=== PATIENT | female | born 1940 | race Caucasian/White ===

== ENCOUNTER → 2017-01-24 | Outpatient (CLI) | payer MEDICARE ==
--- NOTE | 2017-01-24 16:09 | RAD ---
Indication hypothyroidism. Grayscale imaging was performed targeted to the thyroid. Note is made of a similar exam one year ago. The right lobe of the thyroid measures 3.8 x 2 x 2 cm. Within the right lobe there is a hypoechoic well-defined 5-6 mm mass. The isthmus appears unremarkable. The left lobe of the thyroid appears normal and measures approximately 4.1 x 1.5 x 1.8 cm. IMPRESSION: Subcentimeter mass right lobe of the thyroid otherwise unremarkable exam
== END | disposition home or self-care (01) ==
LOC: US 14:41
PROVIDERS: ATTEND Physician Assistant Medical
DX: E03.9 Hypothyroidism, unspecified (principal)
CPT/HCPCS: 76536

== ENCOUNTER → 2017-01-31 | Outpatient (CLI) | payer MEDICARE ==
--- NOTE | 2017-01-31 08:52 | RAD ---
Exam: PA and lateral chest radiograph History: Chest congestion with nonproductive cough for 10 days. Comparison: 07/08/2015. Findings: Cardiac silhouette appears within normal limits for size. Postoperative changes are seen involving the right hemithorax. There is evidence of volume loss involving the right lung shelton. Better seen on the frontal view, there is apparent development of irregular nodule adjacent to left cardiac silhouette measuring about 2.5 cm. This might correspond to the lingula on lateral view. Impression: 1. Possible irregular left lung nodule. Recommend further evaluation with CT. 2. Postoperative changes of right chest.
== END | disposition home or self-care (01) ==
LOC: DXRADRC 07:50
PROVIDERS: ATTEND Physician Assistant Medical
DX: R05 Cough (principal); R09.89 Other specified symptoms and signs involving the circulatory and respiratory systems; Z98.3 Post therapeutic collapse of lung status
CPT/HCPCS: 71020

== ENCOUNTER → 2017-02-07 | Outpatient (CLI) | payer MEDICARE ==
--- NOTE | 2017-02-07 16:03 | RAD ---
Indication lung cancer. History of smoking Noncontrast images through the chest were obtained. No prior CT imaging of the chest is available. Imaging through the upper abdomen shows no definite acute or significant finding. A few small periaortic lymph nodes are noted. These are probably incidental. There are several calcified right and a few left hilar lymph nodes. Significant mediastinal adenopathy is not seen. There are scattered areas of pleural-parenchymal scarring. There is reticulonodular prominence superiorly in the right upper lobe. This could reflect scar. Local inflammation is not excluded. A dominant soft tissue mass in either lung is not seen. There is some nonsolid parenchymal opacities in the left lower lobe, superiorly. This may reflect scar. Inflammation is not excluded. Neoplastic disease is felt very unlikely but follow-up imaging, assessing stability, should be considered. IMPRESSION: No dominant soft tissue mass seen in either lung. Reticulonodular prominence in the right upper lobe may represent scar. Inflammation is not entirely excluded. Nonsolid parenchymal opacities in the left lower lobe. Follow-up imaging to determine stability advised along the lines of the Fleischner criteria. Pleural scarring or peripheral nodule in the left upper lobe measuring approximately 3 mm. Nodules detected incidentally at non-screening CT Nodule size (mm) less than or equal to 4 Low Risk patients- no follow-up needed High Risk patients- follow-up at 12 months and if no change, no further imaging needed. Nodule size > 4-6 mm Low risk patients- follow- up at 12 months and if no change, no further imaging needed High risk patients- initial follow-up CT at 6-12 months and then at 18-24 months if no change. Nodule Size > 6-8 mm Low risk patients- initial follow-up CT at 6-12 months and then at 18-24 months if no change. High risk patients- initial follow- up CT at 3-6 months and then at 9-12 months if no change, Nodule Size >8 mm Either low or high risk patients: Follow-up CT at around 3, 9 and 24 [address], PET, and/or biopsy Note: newly detected indeterminate nodule in person 35 years of age or older. Low risk patients- minimal or absent history of smoking and/or other known risk factors. High risk patients- history of smoking or of other known risk factors. PQRS Compliance Statement: One or more of the following individualized dose reduction techniques were utilized for this examination: 1. Automated exposure control 2. Adjustment of the mA and/or kV according to patient size 3. Use of iterative reconstruction technique
== END | disposition home or self-care (01) ==
LOC: CT 15:05
PROVIDERS: ATTEND Physician Assistant Medical
DX: J98.4 Other disorders of lung (principal); R91.8 Other nonspecific abnormal finding of lung field; C85.90 Non-Hodgkin lymphoma, unspecified, unspecified site; Z87.891 Personal history of nicotine dependence
CPT/HCPCS: 71250

== ENCOUNTER → 2017-07-26 | Outpatient (CLI) | payer MEDICARE ==
--- NOTE | 2017-07-26 15:36 | RAD ---
Indication: Claudication. Technique: Grayscale, color-flow, and spectral waveform analysis of both lower extremity arterial systems was performed. No comparison is available. Findings: Waveforms are triphasic and biphasic proximally although the runoff bilaterally is monophasic. There is mild plaquing throughout both lower extremity arterial systems. There is an elevated velocity in the right superficial femoral artery, mid segment, 224 cm/s. Otherwise, no additional elevated velocity is apparent. Right common femoral artery peak systolic velocity is 147 cm/s and the left 129 cm/s. Right profundus peak systolic velocity is 78 cm/s and the left 71 cm/s. Right superficial femoral artery peak systolic velocities ranged from 153-224 cm/s and the left 132-153 cm/s. Right popliteal artery peak systolic velocity is 62 cm/s and the left 76 cm/s. Impression: 1. Moderately elevated velocity in the right superficial femoral artery, midsegment, suggests a moderate stenosis. 2. Mild scattered atheromatous plaquing throughout both lower extremities. 3. Monophasic runoff bilaterally can be a finding of a more proximal stenosis.
== END | disposition home or self-care (01) ==
LOC: US 13:10
PROVIDERS: ATTEND Physician Assistant Medical
DX: I73.9 Peripheral vascular disease, unspecified (principal)
CPT/HCPCS: 93925

== ENCOUNTER → 2017-10-28 | Outpatient (CLI) | payer MEDICARE ==
[~2017-10-28] MED LIST: BUPIVACAINE MPF 0.25% 10 ML VIAL. ONE; LIDOCAINE 1% PF 30 ML VIAL. ONE; methylPREDNISolone ACETATE 40 MG/ML VIAL. ONE
== END | disposition home or self-care (01) ==
LOC: SURG 13:56
PROVIDERS: ATTEND Anesthesiology Pain Medicine
DX: M47.816 Spondylosis without myelopathy or radiculopathy, lumbar region (principal); I10 Essential (primary) hypertension; Z98.890 Other specified postprocedural states
CPT/HCPCS: 64493; 64494; 99204; J1030; J2001; J3490

== ENCOUNTER → 2017-11-30 | Outpatient (CLI) | payer MEDICARE | END | disposition home or self-care (01) | LOC: SURG 10:30 | PROVIDERS: ATTEND Anesthesiology Pain Medicine | DX: M47.816 Spondylosis without myelopathy or radiculopathy, lumbar region (principal); M54.5 Low back pain; I10 Essential (primary) hypertension; K21.9 Gastro-esophageal reflux disease without esophagitis; J44.9 Chronic obstructive pulmonary disease, unspecified; M19.90 Unspecified osteoarthritis, unspecified site; Z79.899 Other long term (current) drug therapy; Z98.890 Other specified postprocedural states; Z79.82 Long term (current) use of aspirin | CPT/HCPCS: 64493; 64494; 99213; J1030; J2001; J3490 ==

== ENCOUNTER → 2017-12-15 | Outpatient (CLI) | payer MEDICARE | END | disposition home or self-care (01) | LOC: SURG 12:20 | PROVIDERS: ATTEND Anesthesiology Pain Medicine | DX: M47.816 Spondylosis without myelopathy or radiculopathy, lumbar region (principal); M19.90 Unspecified osteoarthritis, unspecified site; J44.9 Chronic obstructive pulmonary disease, unspecified | CPT/HCPCS: 99213 ==

== ENCOUNTER → 2018-01-04 | Outpatient (CLI) | payer MEDICARE ==
[~2018-01-04] MED LIST changes: +ASPI81TA50 PO; +CALC-157 PO; +DEXAMETHASONE SOD PHOS 4 MG/ML VIAL ONE; +DOCU-109 PO; +ESOM40CA PO; +IBUP100T7 PO; +IV RINGERS SOLUTION,LACTATED 1,000 ML IV SCH; +LEVO100T5 PO; +LOSA1TAB22 PO; +MAGN400C PO; +METO-239 PO; +MIDAZOLAM HCL PF 2 MG/2 ML VIAL. ONE; +RANO500T2 PO; -methylPREDNISolone ACETATE 40 MG/ML VIAL. ONE
[2018-01-04 10:32] VITALS: BP 151/72
== END | disposition home or self-care (01) ==
LOC: SURG 07:40
PROVIDERS: ATTEND Anesthesiology Pain Medicine
DX: M47.816 Spondylosis without myelopathy or radiculopathy, lumbar region (principal); J44.9 Chronic obstructive pulmonary disease, unspecified; I10 Essential (primary) hypertension; Z98.890 Other specified postprocedural states
CPT/HCPCS: 64635; 64636; J1100; J2001; J2250; J3010; J3490; J7120; 99152

== ENCOUNTER → 2019-03-13 | Outpatient (CLI) | payer MEDICARE ==
[2018-01-04 10:32] VITALS: BP 151/72
[~2019-03-13] MED LIST changes: -BUPIVACAINE MPF 0.25% 10 ML VIAL. ONE; -DEXAMETHASONE SOD PHOS 4 MG/ML VIAL ONE; -IV RINGERS SOLUTION,LACTATED 1,000 ML IV SCH; -LIDOCAINE 1% PF 30 ML VIAL. ONE; -MIDAZOLAM HCL PF 2 MG/2 ML VIAL. ONE
--- NOTE | 2019-03-13 17:23 | RAD ---
Sonography of the soft tissues of the neck Clinical indications: Neck fullness. FINDINGS: High-resolution sonography of both sides of the neck was performed. No focal sonographic abnormality such as a solid mass or cyst or abscess or abnormally enlarged lymph node is seen. Prominent jugular veins are seen bilaterally. IMPRESSION: Prominent jugular veins bilaterally. No other significant abnormality. Electronically signed by: Isauro Smart MD (03/13/2019 5:20 PM) [id number]
== END | disposition home or self-care (01) ==
LOC: US 12:44
PROVIDERS: ATTEND Physician Assistant Medical
DX: R22.1 Localized swelling, mass and lump, neck (principal); R25.2 Cramp and spasm
CPT/HCPCS: 76536

== ENCOUNTER → 2020-03-17 | Outpatient (CLI) | payer MEDICARE ==
[2018-01-04 10:32] VITALS: BP 151/72
--- NOTE | 2020-03-18 07:59 | RAD ---
EXAM: Pelvis and right hip, 3 views; lumbar spine, 5 views. HISTORY: Pain. COMPARISON: None. FINDINGS: Pelvis and right hip: A frontal view the pelvis and frontal and frog-leg views of the right hip are obtained. There are chronic appearing right superior pubic ramus and bilateral inferior pubic ramus fractures. There is bilateral hip joint space narrowing with minimal marginal acetabular and femoral head spurring. There is a suspected bone island within the right femoral neck. There are degenerative changes involving the lower lumbar spine. There is lumbar scoliosis. Lumbar spine: 5 views of the lumbar spine are obtained. There is lumbar levoscoliosis centered at L2-L3. There is grade 1 anterolisthesis of L5 on S1. There is multilevel endplate remodeling and facet arthropathy. There is disc space narrowing and vacuum phenomenon at L2-S1. No acute fracture is seen. IMPRESSION: 1. Mild bilateral hip osteoarthritis. 2. Multilevel degenerative change throughout the lumbar spine, described above. 3. Lumbar scoliosis. 4. Chronic appearing right superior pubic ramus fracture and chronic appearing bilateral inferior pubic rami fractures. Electronically signed by: Anastasiya Phillips MD (03/18/2020 7:56 AM) [id number]
== END ==
LOC: RAD 17:43
PROVIDERS: ATTEND Physician Assistant Medical
DX: S32.511A Fracture of superior rim of right pubis, initial encounter for closed fracture (principal); S32.592A Other specified fracture of left pubis, initial encounter for closed fracture; S32.591A Other specified fracture of right pubis, initial encounter for closed fracture; M47.817 Spondylosis without myelopathy or radiculopathy, lumbosacral region; M48.07 Spinal stenosis, lumbosacral region; M16.0 Bilateral primary osteoarthritis of hip; M41.86 Other forms of scoliosis, lumbar region; X58.XXXA Exposure to other specified factors, initial encounter; Y93.89 Activity, other specified; Y92.89 Other specified places as the place of occurrence of the external cause; Y99.8 Other external cause status
CPT/HCPCS: 72110; 73502

== ENCOUNTER → 2020-03-24 | Outpatient (CLI) | payer MEDICARE ==
[2018-01-04 10:32] VITALS: BP 151/72
--- NOTE | 2020-03-24 13:29 | RAD ---
EXAM: Renal sonogram. HISTORY: Recurrent urinary tract infection. TECHNIQUE: Sonographic imaging of the kidneys and bladder was performed. COMPARISON: None. FINDINGS: The kidneys are normal in size. No solid or cystic renal lesion is seen. There is no hydronephrosis. The prevoid urinary bladder volume is 146 cc. The ureteral jets are not seen during the exam. There is no aortic aneurysm. The inferior vena cava is patent. IMPRESSION: Sonographically unremarkable kidneys. Electronically signed by: Anastasiya Phillips MD (03/24/2020 1:26 PM) [facility]
== END ==
LOC: US 12:33
PROVIDERS: ATTEND Physician Assistant Medical
DX: N39.0 Urinary tract infection, site not specified (principal)
CPT/HCPCS: 76770